=== PATIENT | male | born 1985 | race Caucasian/White ===

== ENCOUNTER 2017-06-08 20:16 | Emergency (ER) | payer OTHER ==
[~2017-06-08] VITALS: Ht 182.9 cm; Wt 81.7 kg
[~2017-06-08 20:16] MED LIST: AMOX500 PO; Augmentin 875-1 EACH PO; BENADRYL25 MG PO; Bactrim Ds Tab1 EACH PO; CRUTCH4 USE; EPIN.3I IM; HYDACE5 PO; IBUP400 PO; IBUP800 PO; INVEGA SUS156 MG/1 M IM; MUPI2TC TOP; NAPR500 PO; Norco 5-325 Ta1 EACH PO; PENVK250 PO; PENVK500 PO; PERM5TC TOP; Pepcid20 MG PO; Prednisone20 MG PO; RXPENVK250 PO; TRAM50 PO; Veetids 500500 MG PO; Zofran Odt4 MG SL
[2017-06-08] MEDS ORDERED: PSEU120ER PO (20:52)
[2017-06-08] MEDS ORDERED: BENZ100A PO (20:52)
== END 2017-06-08 20:56 | disposition home or self-care (01) ==
LOC: ER 20:16
DX: J20.8 Acute bronchitis due to other specified organisms (principal); F17.210 Nicotine dependence, cigarettes, uncomplicated; Z91.040 Latex allergy status; Z91.018 Allergy to other foods
CPT/HCPCS: 99283

== ENCOUNTER 2017-08-19 17:26 | Emergency (ER) | payer OTHER ==
[~2017-08-19] VITALS: Ht 182.9 cm; Wt 81.7 kg
[~2017-08-19 17:26] MED LIST changes: +BENZ100A PO; +PSEU120ER PO
[2017-08-19] MEDS ORDERED: PSEU120ER PO (19:02)
[2017-08-19] MEDS ORDERED: Flonase 0.05% N16 GM (19:02)
== END 2017-08-19 19:06 | disposition home or self-care (01) ==
LOC: ER 17:26
DX: J32.9 Chronic sinusitis, unspecified (principal); Z91.040 Latex allergy status; Z91.048 Other nonmedicinal substance allergy status; F17.210 Nicotine dependence, cigarettes, uncomplicated
CPT/HCPCS: 87081; 87430; 99283

== ENCOUNTER 2019-01-23 15:34 | Emergency (ER) | payer OTHER ==
[~2019-01-23] VITALS: Ht 182.9 cm; Wt 81.7 kg
[~2019-01-23 15:34] MED LIST changes: +Flonase 0.05% N16 GM
[2019-01-23] MEDS ORDERED: CYCL10 PO (16:53)
[2019-01-23] MEDS ORDERED: IBUP800 PO (16:53)
== END 2019-01-23 17:08 | disposition home or self-care (01) ==
LOC: ER 15:34
DX: S39.012A Strain of muscle, fascia and tendon of lower back, initial encounter (principal); X58.XXXA Exposure to other specified factors, initial encounter; Y99.0 Civilian activity done for income or pay; Z91.040 Latex allergy status; Z91.048 Other nonmedicinal substance allergy status; F17.200 Nicotine dependence, unspecified, uncomplicated
CPT/HCPCS: 72100; 99283-25

== ENCOUNTER 2019-04-03 20:50 | Emergency (ER) | payer OTHER ==
[~2019-04-03] VITALS: Ht 182.9 cm; Wt 81.7 kg
[~2019-04-03 20:50] MED LIST changes: +CYCL10 PO
[2019-04-03] MEDS ORDERED: IBUP600 PO (22:20)
[2019-04-03] MEDS ORDERED: ONDA4ODT MM (22:20)
== END 2019-04-03 22:29 | disposition home or self-care (01) ==
LOC: ER 20:50
DX: J11.1 Influenza due to unidentified influenza virus with other respiratory manifestations (principal); Z91.040 Latex allergy status; Z91.018 Allergy to other foods; F17.200 Nicotine dependence, unspecified, uncomplicated
CPT/HCPCS: 87430; 99283

== ENCOUNTER 2020-10-21 07:29 | Emergency (ER) | payer OTHER ==
[~2020-10-21] VITALS: Ht 182.9 cm; Wt 81.7 kg
[~2020-10-21 07:29] MED LIST changes: +IBUP600 PO; +ONDA4ODT MM
== END 2020-10-21 08:54 | disposition home or self-care (01) ==
LOC: ER 07:29
DX: J11.1 Influenza due to unidentified influenza virus with other respiratory manifestations (principal); F17.200 Nicotine dependence, unspecified, uncomplicated; Z91.040 Latex allergy status; Z91.018 Allergy to other foods
CPT/HCPCS: 87430; 96372; 99284; J0561

== ENCOUNTER 2020-12-19 05:39 | Emergency (ER) | payer OTHER ==
[~2020-12-19] VITALS: Ht 182.9 cm; Wt 81.7 kg
== END 2020-12-19 08:11 | disposition home or self-care (01) ==
LOC: ER 05:39
DX: R51.9 Headache, unspecified (principal); Z91.040 Latex allergy status; Z91.018 Allergy to other foods; F17.210 Nicotine dependence, cigarettes, uncomplicated
CPT/HCPCS: 36415; 96374; 96375; 99283-25; J1100; J1200; J1885; J2765; J7030

== ENCOUNTER 2021-01-06 17:22 | Emergency (ER) | payer OTHER ==
[~2021-01-06] VITALS: Ht 182.9 cm; Wt 81.7 kg
== END 2021-01-06 19:23 | disposition left against medical advice (07) ==
LOC: ER 17:22
DX: K02.9 Dental caries, unspecified (principal); K08.89 Other specified disorders of teeth and supporting structures; F17.210 Nicotine dependence, cigarettes, uncomplicated; Z91.040 Latex allergy status; Z91.018 Allergy to other foods
CPT/HCPCS: 91303; 99282

== ENCOUNTER 2021-03-18 05:05 | Emergency (ER) | payer OTHER ==
[~2021-03-18] VITALS: Ht 182.9 cm; Wt 81.7 kg
== END 2021-03-18 06:41 | disposition home or self-care (01) ==
LOC: ER 05:05
DX: U07.1 COVID-19 (principal); Z91.040 Latex allergy status; F17.210 Nicotine dependence, cigarettes, uncomplicated
CPT/HCPCS: 99282

== ENCOUNTER 2021-03-29 01:56 | Emergency (ER) | payer OTHER ==
[~2021-03-29] VITALS: Ht 182.9 cm; Wt 81.7 kg
== END 2021-03-29 06:15 | disposition home or self-care (01) ==
LOC: ER 01:56
DX: R05.9 Cough, unspecified (principal); Z91.040 Latex allergy status; Z91.018 Allergy to other foods; F17.210 Nicotine dependence, cigarettes, uncomplicated
CPT/HCPCS: 71045; 99284-25

== ENCOUNTER 2021-06-08 22:44 | Emergency (ER) | payer OTHER ==
[~2021-06-08] VITALS: Ht 182.9 cm; Wt 81.7 kg
[~2021-06-08 22:44] MED LIST changes: +CLIN300 PO
[2021-06-08] MEDS ORDERED: AMOX500 PO (23:25)
== END 2021-06-08 23:55 | disposition home or self-care (01) ==
LOC: ER 22:44
DX: K02.9 Dental caries, unspecified (principal); K08.89 Other specified disorders of teeth and supporting structures; F15.10 Other stimulant abuse, uncomplicated; F17.210 Nicotine dependence, cigarettes, uncomplicated
CPT/HCPCS: 99282; A9270

== ENCOUNTER 2021-09-26 22:45 | Emergency (ER) | payer SELFPAY ==
[~2021-09-26] VITALS: Ht 182.9 cm; Wt 81.7 kg
[2021-09-26] MEDS ORDERED: CEPH500 PO (23:22)
== END 2021-09-26 23:32 | disposition home or self-care (01) ==
LOC: ER 22:45
DX: L02.612 Cutaneous abscess of left foot (principal); F17.210 Nicotine dependence, cigarettes, uncomplicated
CPT/HCPCS: A9270

== ENCOUNTER 2021-10-31 13:19 | Emergency (ER) | payer SELFPAY ==
[~2021-10-31] VITALS: Ht 182.9 cm; Wt 81.7 kg
[~2021-10-31 13:19] MED LIST changes: +CEPH500 PO
== END 2021-10-31 15:24 | disposition left against medical advice (07) ==
LOC: ER 13:19
DX: L02.416 Cutaneous abscess of left lower limb (principal); Z53.21 Procedure and treatment not carried out due to patient leaving prior to being seen by health care provider
CPT/HCPCS: 99281

== ENCOUNTER 2021-12-12 01:56 | Emergency (ER) | payer OTHER ==
[~2021-12-12] VITALS: Ht 182.9 cm; Wt 81.7 kg
[2021-12-12] MEDS ORDERED: ZEBUTAL 50-3251 EAC1 PO (03:40)
[2021-12-15] MEDS ORDERED: IBUP800 PO (05:06)
== END 2021-12-12 04:16 | disposition home or self-care (01) ==
LOC: ER 01:56
DX: R51.9 Headache, unspecified (principal); R11.0 Nausea; F17.210 Nicotine dependence, cigarettes, uncomplicated; Z91.040 Latex allergy status; Z91.048 Other nonmedicinal substance allergy status
CPT/HCPCS: 96372; 99283-25; J1885

== ENCOUNTER 2022-02-01 05:07 | Emergency (ER) | payer OTHER ==
[~2022-02-01] VITALS: Ht 182.9 cm; Wt 81.7 kg
[~2022-02-01 05:07] MED LIST changes: +ZEBUTAL 50-3251 EAC1 PO
== END 2022-02-01 08:03 | disposition home or self-care (01) ==
LOC: ER 05:07
DX: R51.9 Headache, unspecified (principal); Z91.040 Latex allergy status; Z91.048 Other nonmedicinal substance allergy status; F17.210 Nicotine dependence, cigarettes, uncomplicated
CPT/HCPCS: 99283

== ENCOUNTER 2022-03-06 10:54 | Emergency (ER) | payer OTHER ==
[~2022-03-06] VITALS: Ht 175.3 cm; Wt 70.3 kg
== END 2022-03-06 11:25 | disposition home or self-care (01) ==
LOC: ER 10:54
DX: J02.8 Acute pharyngitis due to other specified organisms (principal); F17.210 Nicotine dependence, cigarettes, uncomplicated; Z91.040 Latex allergy status; Z91.018 Allergy to other foods
CPT/HCPCS: 99282

== ENCOUNTER 2022-03-15 17:59 | Emergency (ER) | payer OTHER ==
[~2022-03-15] VITALS: Ht 182.9 cm; Wt 81.7 kg
== END 2022-03-15 21:00 | disposition home or self-care (01) ==
LOC: ER 17:59
DX: L08.9 Local infection of the skin and subcutaneous tissue, unspecified (principal); F17.210 Nicotine dependence, cigarettes, uncomplicated; Z53.29 Procedure and treatment not carried out because of patient's decision for other reasons
CPT/HCPCS: 99282

== ENCOUNTER 2022-09-05 00:42 | Emergency (ER) | payer OTHER ==
[~2022-09-05] VITALS: Ht 182.9 cm; Wt 81.7 kg
[2022-09-05 00:57] VITALS: BP 142/87
== END 2022-09-05 02:24 | disposition home or self-care (01) ==
LOC: ER 00:42
DX: F15.10 Other stimulant abuse, uncomplicated (principal); R51.9 Headache, unspecified; F17.210 Nicotine dependence, cigarettes, uncomplicated; Z91.040 Latex allergy status; Z91.018 Allergy to other foods
CPT/HCPCS: 99283; A9270

== ENCOUNTER 2022-10-06 05:30 | Emergency (ER) | payer OTHER ==
[~2022-10-06] VITALS: Ht 182.9 cm; Wt 81.7 kg
[2022-10-06 05:45] VITALS: BP 136/83
[2022-10-06] MEDS ORDERED: Amoxicillin875 MG PO (06:21)
== END 2022-10-06 06:32 | disposition home or self-care (01) ==
LOC: ER 05:30
DX: K04.7 Periapical abscess without sinus (principal); K02.9 Dental caries, unspecified; Z91.040 Latex allergy status; Z91.018 Allergy to other foods; F17.210 Nicotine dependence, cigarettes, uncomplicated
CPT/HCPCS: 99282; A9270

== ENCOUNTER 2022-10-09 05:28 | Emergency (ER) | payer OTHER ==
[~2022-10-09] VITALS: Ht 182.9 cm; Wt 81.7 kg
[~2022-10-09 05:28] MED LIST changes: +Amoxicillin875 MG PO
[2022-10-09 08:03] LABS: Influenza A, PCR NEGATIVE (NEGATIVE); Influenza B, PCR NEGATIVE (NEGATIVE); Resp Syncytial Virus, PCR NEGATIVE (NEGATIVE); SARS-Cov-2 (COVID-19) PCR, MMC NEGATIVE (NEGATIVE)
[2022-10-09] MEDS ORDERED: METO10 PO (08:30)
[2022-10-09] MEDS ORDERED: ONDA4ODT MM (08:30)
[2022-10-09 08:36] VITALS: BP 155/78
== END 2022-10-09 08:38 | disposition home or self-care (01) ==
LOC: ER 05:28
PROVIDERS: Student in an Organized Health Care Education/Training Program
DX: G43.909 Migraine, unspecified, not intractable, without status migrainosus (principal); B34.9 Viral infection, unspecified; K02.9 Dental caries, unspecified; R59.0 Localized enlarged lymph nodes; F17.210 Nicotine dependence, cigarettes, uncomplicated; Z91.040 Latex allergy status; Z91.048 Other nonmedicinal substance allergy status; Z20.822 Contact with and (suspected) exposure to COVID-19
CPT/HCPCS: 0241U; 96361; 96374; 96375; 99283-25; A9270; J1885; J2765; J7030

== ENCOUNTER 2022-10-17 04:19 | Emergency (ER) | payer OTHER ==
[~2022-10-17] VITALS: Ht 182.9 cm; Wt 81.7 kg
[~2022-10-17 04:19] MED LIST changes: +METO10 PO
[2022-10-17 04:33] VITALS: BP 136/91
== END 2022-10-17 06:27 | disposition home or self-care (01) ==
LOC: ER 04:19
DX: G43.909 Migraine, unspecified, not intractable, without status migrainosus (principal); F17.210 Nicotine dependence, cigarettes, uncomplicated
CPT/HCPCS: 96361; 96374; 96375; 99282-25; A9270; J0780; J1200; J7030

== ENCOUNTER 2022-11-09 03:40 | Emergency (ER) | payer OTHER ==
[~2022-11-09] VITALS: Ht 182.9 cm; Wt 81.7 kg
[2022-11-09 04:04] VITALS: BP 129/83
== END 2022-11-09 04:31 | disposition home or self-care (01) ==
LOC: ER 03:40
DX: R51.9 Headache, unspecified (principal); F15.90 Other stimulant use, unspecified, uncomplicated; F17.210 Nicotine dependence, cigarettes, uncomplicated; Z91.040 Latex allergy status; Z91.018 Allergy to other foods
CPT/HCPCS: 99283

== ENCOUNTER 2022-12-03 03:34 | Emergency (ER) | payer OTHER ==
[~2022-12-03] VITALS: Ht 180.3 cm; Wt 59.0 kg
[2022-12-03 03:50] VITALS: BP 132/95
[2022-12-03] MEDS ORDERED: Ibuprofen600 MG PO (04:18)
[2022-12-03] MEDS ORDERED: PENVK500 PO (04:18)
== END 2022-12-03 04:24 | disposition home or self-care (01) ==
LOC: ER 03:34
DX: K02.9 Dental caries, unspecified (principal); Z91.040 Latex allergy status; Z91.018 Allergy to other foods; G43.909 Migraine, unspecified, not intractable, without status migrainosus; F17.210 Nicotine dependence, cigarettes, uncomplicated
CPT/HCPCS: 99282; A9270

== ENCOUNTER 2023-01-08 06:23 | Emergency (ER) | payer OTHER ==
[~2023-01-08] VITALS: Ht 182.9 cm; Wt 81.7 kg
[~2023-01-08 06:23] MED LIST changes: +Ibuprofen600 MG PO
[2023-01-08 06:40] VITALS: BP 133/82
[2023-01-08] MEDS ORDERED: IBUP600 PO (07:26)
[2023-01-08] MEDS ORDERED: PSEU120ER PO (07:26)
== END 2023-01-08 07:57 | disposition home or self-care (01) ==
LOC: ER 06:23
DX: J06.9 Acute upper respiratory infection, unspecified (principal); Z91.040 Latex allergy status; Z91.018 Allergy to other foods; Z79.899 Other long term (current) drug therapy; G43.909 Migraine, unspecified, not intractable, without status migrainosus; F17.210 Nicotine dependence, cigarettes, uncomplicated
CPT/HCPCS: 99283; A9270

== ENCOUNTER 2023-03-22 05:05 | Emergency (ER) | payer OTHER ==
[~2023-03-22] VITALS: Ht 182.9 cm; Wt 81.7 kg
[2023-03-22 05:24] VITALS: BP 145/98
== END 2023-03-22 05:54 | disposition home or self-care (01) ==
LOC: ER 05:05
DX: K02.9 Dental caries, unspecified (principal); F17.210 Nicotine dependence, cigarettes, uncomplicated; Z91.040 Latex allergy status; Z91.018 Allergy to other foods
CPT/HCPCS: 99282

== ENCOUNTER 2023-04-22 02:10 | Emergency (ER) | payer OTHER ==
[~2023-04-22] VITALS: Ht 182.9 cm; Wt 81.7 kg
[2023-04-22 02:19] VITALS: BP 141/85
[2023-04-22 03:11] LABS: Influenza A, PCR NEGATIVE (NEGATIVE); Influenza B, PCR NEGATIVE (NEGATIVE); Resp Syncytial Virus, PCR NEGATIVE (NEGATIVE); SARS-Cov-2 (COVID-19) PCR, MMC NEGATIVE (NEGATIVE)
[2023-04-22] MEDS ORDERED: Ibuprofen 600 MG Tab PO ONE (03:50)
[2023-04-22] MEDS ORDERED: Acetaminophen 500 MG Tab PO ONE (03:55)
== END 2023-04-22 04:20 | disposition left against medical advice (07) ==
LOC: ER 02:10
PROVIDERS: Emergency Medicine
DX: J02.9 Acute pharyngitis, unspecified (principal); Z91.040 Latex allergy status; Z91.018 Allergy to other foods; G43.909 Migraine, unspecified, not intractable, without status migrainosus; F17.210 Nicotine dependence, cigarettes, uncomplicated
CPT/HCPCS: 0241U; 99284; A9270

== ENCOUNTER 2023-07-04 21:29 | Emergency (ER) | payer OTHER ==
[~2023-07-04] VITALS: Ht 177.8 cm; Wt 72.6 kg
[~2023-07-04 21:29] MED LIST changes: +ACET500 PO
[2023-07-04 21:32] VITALS: BP 155/92
[2023-07-04] MEDS ORDERED: Ibuprofen 400 MG Tab PO ONE (21:40)
[2023-07-04] MEDS ORDERED: Amoxicillin/Clavulanate K 875 MG Tab PO ONE (21:40)
[2023-07-04] MEDS ORDERED: IBUP800 PO (21:41)
[2023-07-04] MEDS ORDERED: AMOCLA875 PO (21:41)
== END 2023-07-04 21:47 | disposition home or self-care (01) ==
LOC: ER 21:29
DX: K04.7 Periapical abscess without sinus (principal); J32.9 Chronic sinusitis, unspecified; F17.210 Nicotine dependence, cigarettes, uncomplicated; Z91.040 Latex allergy status; Z91.018 Allergy to other foods
CPT/HCPCS: 99282; A9270

== ENCOUNTER 2023-10-16 19:46 | Emergency (ER) | payer OTHER ==
[~2023-10-16] VITALS: Ht 182.9 cm; Wt 81.7 kg
[~2023-10-16 19:46] MED LIST changes: +AMOCLA875 PO; +Nicoderm Cq1 EAC1 TOP; +VISBIOME 112.51 EACH PO
[2023-10-16 20:32] VITALS: BP 138/96
[2023-10-16] MEDS ORDERED: Amoxicillin875 MG PO (21:09)
[2023-10-16] MEDS ORDERED: Amoxicillin 875 MG Tab PO ONE (21:10)
== END 2023-10-16 21:22 | disposition home or self-care (01) ==
LOC: ER 19:46
DX: K04.7 Periapical abscess without sinus (principal); F17.210 Nicotine dependence, cigarettes, uncomplicated; Z91.040 Latex allergy status; Z91.018 Allergy to other foods; Z79.899 Other long term (current) drug therapy
CPT/HCPCS: 99282; A9270

== ENCOUNTER 2023-11-07 04:50 | Emergency (ER) | payer OTHER ==
[~2023-11-07] VITALS: Ht 182.9 cm; Wt 90.7 kg
[2023-11-07] MEDS ORDERED: DiphenhydrAMINE HCL 25 MG Cap PO ONE (05:05)
[2023-11-07] MEDS ORDERED: Acetaminophen 500 MG Tab PO ONE (05:05)
[2023-11-07] MEDS ORDERED: Naproxen 250 MG TAB PO ONE (05:05)
[2023-11-07] MEDS ORDERED: Metoclopramide HCl 10 MG Tab PO ONE (05:05)
[2023-11-07 05:45] VITALS: BP 118/78
[2023-11-07] MEDS ORDERED: METO10 PO (05:48)
== END 2023-11-07 05:54 | disposition home or self-care (01) ==
LOC: ER 04:50
DX: R51.9 Headache, unspecified (principal); F17.200 Nicotine dependence, unspecified, uncomplicated; Z91.040 Latex allergy status; Z91.018 Allergy to other foods; Z79.899 Other long term (current) drug therapy
CPT/HCPCS: A9270

== ENCOUNTER 2023-11-17 00:28 | Emergency (ER) | payer OTHER ==
[~2023-11-17] VITALS: Ht 182.9 cm; Wt 81.7 kg
[2023-11-17 00:35] VITALS: BP 152/84
[2023-11-17] MEDS ORDERED: Penicillin V Potassium 250 MG Tab PO ONE (02:30)
== END 2023-11-17 02:45 | disposition home or self-care (01) ==
LOC: ER 00:28
DX: K04.7 Periapical abscess without sinus (principal); F17.200 Nicotine dependence, unspecified, uncomplicated; Z79.899 Other long term (current) drug therapy; Z91.040 Latex allergy status; Z91.018 Allergy to other foods
CPT/HCPCS: 99282; A9270

== ENCOUNTER 2023-11-26 07:21 | Emergency (ER) | payer OTHER ==
[~2023-11-26] VITALS: Ht 182.9 cm; Wt 81.7 kg
[2023-11-26] MEDS ORDERED: Ketorolac Tromethamine 15mg Vial IV ONE (07:45)
[2023-11-26] MEDS ORDERED: Ampicillin Sod/Sulbactam Sod 1.5 GM in NS 100 ML IV ONE (07:45)
[2023-11-26] MEDS ORDERED: Dexamethasone Sodium Phosphate 4 MG/ML 1ML Vial IV ONE (07:45)
[2023-11-26 08:27] LABS: BASOPHILS PERCENT AUTO 1 % (0-2); EOSINOPHILS ABSOLUTE AUTO 0.44 K/mm3 (0.00-0.68); EOSINOPHILS PERCENT AUTO 6 % (0-6); Hematocrit 36.5 % (37.0-53.0); Hemoglobin 11.7 g/dL (13.5-17.5); IMMATURE GRAN ABSOLUTE AUTO 0.01 K/mm3 (0.00-0.10); IMMATURE GRAN PERCENT AUTO 0 % (0-1); LYMPHOCYTES PERCENT AUTO 29 % (21-46); MONOCYTES PERCENT AUTO 10 % (4-13); Mean Corpuscular HGB 27.9 pg (26.0-34.0); Mean Corpuscular HGB Conc 32.1 g/dL (31.5-36.5); Mean Corpuscular Volume 87 fL (80-100); Mean Platelet Volume 9.2 fL (9.1-12.4); NEUTROPHILS ABSOLUTE AUTO 3.94 K/mm3 (1.96-9.15); NEUTROPHILS PERCENT AUTO 54 % (41-73); Platelet Count 373 K/mm3 (150-400); RDW Coefficient Variation 12.8 % (11.7-14.2); RDW Standard Deviation 40.8 fL (35.1-46.3); White Blood Cell Count 7.29 K/mm3 (4.00-11.30)
[2023-11-26 08:53] LABS: Bun/Creatinine Ratio 21.5 (12.0-20.0); Calcium, Blood 8.8 mg/dL (8.5-10.1); Creatinine, Blood 0.84 mg/dL (0.60-1.20); Potassium, Blood 3.7 mmol/L (3.5-5.5)
[2023-11-26 09:15] VITALS: BP 129/91
[2023-11-26] MEDS ORDERED: ACET500 PO (09:16)
[2023-11-26] MEDS ORDERED: IBUP600 PO (09:16)
[2023-11-26] MEDS ORDERED: AMOCLA875 PO (09:16)
== END 2023-11-26 09:30 | disposition home or self-care (01) ==
LOC: ER 07:21
PROVIDERS: Emergency Medicine
DX: K04.7 Periapical abscess without sinus (principal); F17.200 Nicotine dependence, unspecified, uncomplicated; Z79.899 Other long term (current) drug therapy; Z91.040 Latex allergy status; Z91.018 Allergy to other foods
CPT/HCPCS: 80048; 85025; 96365; 96375; 99283-25; J0295; J1100; J1885

== ENCOUNTER 2023-11-29 06:16 | Emergency (ER) | payer OTHER ==
[~2023-11-29] VITALS: Ht 182.9 cm; Wt 81.7 kg
[2023-11-29 06:34] VITALS: BP 131/82
[2023-11-29] MEDS ORDERED: AMOCLA875 PO (06:39)
== END 2023-11-29 06:42 | disposition home or self-care (01) ==
LOC: ER 06:16
DX: K04.7 Periapical abscess without sinus (principal); F17.210 Nicotine dependence, cigarettes, uncomplicated; Z79.899 Other long term (current) drug therapy; Z91.040 Latex allergy status; Z91.018 Allergy to other foods
CPT/HCPCS: 99281

== ENCOUNTER 2023-12-04 23:00 | Emergency (ER) | payer OTHER ==
[~2023-12-04] VITALS: Ht 182.9 cm; Wt 81.7 kg
[2023-12-04] MEDS ORDERED: DiphenhydrAMINE HCl 50 MG Cap PO ONE (23:05)
[2023-12-04] MEDS ORDERED: Famotidine 20 MG Tab PO ONE (23:05)
[2023-12-05] MEDS ORDERED: Acetaminophen 500 MG Tab PO ONE (00:25)
[2023-12-05] MEDS ORDERED: EPIPEN0.3 MG/0.3 IM (00:28)
[2023-12-05] MEDS ORDERED: BENADRYL25 M1 PO (00:28)
[2023-12-05] MEDS ORDERED: ACET500 PO (00:28)
[2023-12-05 00:50] VITALS: BP 121/73
[2023-12-05] MEDS ORDERED: Ondansetron 4 MG SoluTab SL ONE (00:50)
== END 2023-12-05 00:51 | disposition home or self-care (01) ==
LOC: ER 23:00
DX: R51.9 Headache, unspecified (principal); R11.0 Nausea; F17.210 Nicotine dependence, cigarettes, uncomplicated; Z91.040 Latex allergy status; Z91.018 Allergy to other foods; Z79.2 Long term (current) use of antibiotics; Z79.899 Other long term (current) drug therapy
CPT/HCPCS: 99283; A9270

== ENCOUNTER 2023-12-12 03:18 | Emergency (ER) | payer OTHER ==
[~2023-12-12] VITALS: Ht 182.9 cm; Wt 81.7 kg
[~2023-12-12 03:18] MED LIST changes: +BENADRYL25 M1 PO; +EPIPEN0.3 MG/0.3 IM
[2023-12-12] MEDS ORDERED: Ketorolac Tromethamine 15mg Vial IV ONE (03:45)
[2023-12-12] MEDS ORDERED: Lactated Ringer's 1,000 ML IV ONE (03:45)
[2023-12-12] MEDS ORDERED: Ondansetron HCl 2 MG / ML 2ML Vial IV ONE (03:45)
[2023-12-12 04:29] LABS: BASOPHILS ABSOLUTE AUTO 0.09 K/mm3 (0.00-0.23); BASOPHILS PERCENT AUTO 1 % (0-2); EOSINOPHILS ABSOLUTE AUTO 0.29 K/mm3 (0.00-0.68); EOSINOPHILS PERCENT AUTO 3 % (0-6); Hematocrit 36.7 % (37.0-53.0); Hemoglobin 11.8 g/dL (13.5-17.5); IMMATURE GRAN ABSOLUTE AUTO 0.01 K/mm3 (0.00-0.10); IMMATURE GRAN PERCENT AUTO 0 % (0-1); LYMPHOCYTES ABSOLUTE AUTO 2.24 K/mm3 (0.84-5.20); LYMPHOCYTES PERCENT AUTO 24 % (21-46); MONOCYTES PERCENT AUTO 8 % (4-13); Mean Corpuscular HGB 27.5 pg (26.0-34.0); Mean Corpuscular HGB Conc 32.2 g/dL (31.5-36.5); Mean Corpuscular Volume 86 fL (80-100); Mean Platelet Volume 9.1 fL (9.1-12.4); NEUTROPHILS ABSOLUTE AUTO 5.93 K/mm3 (1.96-9.15); NEUTROPHILS PERCENT AUTO 64 % (41-73); Platelet Count 428 K/mm3 (150-400); RDW Coefficient Variation 13.2 % (11.7-14.2); Red Blood Cell Count 4.29 M/mm3 (4.30-5.90); White Blood Cell Count 9.26 K/mm3 (4.00-11.30)
[2023-12-12 05:02] LABS: Albumin, Blood 3.6 g/dL (3.4-5.0); Albumin/Globulin Ratio 1.1 (0.8-1.8); Bilirubin, Total 0.2 mg/dL (0.1-1.0); Bun/Creatinine Ratio 25.3 (12.0-20.0); Calcium, Blood 9.1 mg/dL (8.5-10.1); Creatinine, Blood 0.87 mg/dL (0.60-1.20); Globulin, Blood 3.4 g/dL (2.2-4.0); Potassium, Blood 3.8 mmol/L (3.5-5.5)
[2023-12-12 05:36] LABS: Source, Urine Clean Catch
[2023-12-12 05:39] LABS: Appearance, Urine Clear (Clear); Bilirubin, Urine Neg (Neg); Blood, Urine Neg (Neg); Color, Urine Yellow (P-Yellow); Glucose Qualitative, Urine Neg (Neg); Ketones, Urine Neg (Neg); Leukocyte Esterase, Urine Neg (Neg); Nitrite, Urine Neg (Neg); Protein, Urine Neg (Neg); Urobilinogen, Urine NORM (Normal); pH, Urine 6.5 (5.0-8.0)
[2023-12-12] MEDS ORDERED: MIRALAX17 GM PO (05:50)
[2023-12-12 06:25] VITALS: BP 139/85
== END 2023-12-12 06:25 | disposition home or self-care (01) ==
LOC: ER 03:18
PROVIDERS: Student in an Organized Health Care Education/Training Program
DX: K59.00 Constipation, unspecified (principal); R10.84 Generalized abdominal pain; R11.0 Nausea; F17.210 Nicotine dependence, cigarettes, uncomplicated; Z79.899 Other long term (current) drug therapy; Z91.040 Latex allergy status; Z91.018 Allergy to other foods
CPT/HCPCS: 74019; 80053; 81003; 83690; 85025; 96361; 96374; 96375; 99284-25; J1885; J2405; J7120

== ENCOUNTER 2024-01-04 06:12 | Emergency (ER) | payer OTHER ==
[~2024-01-04] VITALS: Ht 182.9 cm; Wt 81.7 kg
[~2024-01-04 06:12] MED LIST changes: +MIRALAX17 GM PO
[2024-01-04 06:23] VITALS: BP 153/90
[2024-01-04] MEDS ORDERED: Ibuprofen 400 MG Tab PO ONE (06:30)
[2024-01-04] MEDS ORDERED: Promethazine HCl 25 MG Tab PO ONE (06:30)
== END 2024-01-04 07:28 ==
LOC: ER 06:12
DX: R51.9 Headache, unspecified (principal); F17.210 Nicotine dependence, cigarettes, uncomplicated; Z79.899 Other long term (current) drug therapy; Z91.040 Latex allergy status; Z91.018 Allergy to other foods
CPT/HCPCS: 99283; A9270

== ENCOUNTER 2024-02-20 17:39 | Emergency (ER) | payer OTHER ==
[~2024-02-20] VITALS: Ht 182.9 cm; Wt 81.7 kg
[2024-02-20 17:44] VITALS: BP 136/102
[2024-02-20] MEDS ORDERED: Ketorolac Tromethamine 30mg Vial IM ONE (18:00)
[2024-02-20] MEDS ORDERED: Ondansetron 4 MG SoluTab SL ONE (18:00)
[2024-02-20] MEDS ORDERED: RX Prepack 2 Tabs Ondansetron ODT 4MG UD ONE (18:25)
== END 2024-02-20 18:40 | disposition home or self-care (01) ==
LOC: ER 17:39
DX: J06.9 Acute upper respiratory infection, unspecified (principal); F17.210 Nicotine dependence, cigarettes, uncomplicated; Z91.040 Latex allergy status; Z91.018 Allergy to other foods
CPT/HCPCS: 87081; 96374; 99283-25; A9270; J1885

== ENCOUNTER 2024-03-29 07:32 | Emergency (ER) | payer OTHER ==
[~2024-03-29] VITALS: Ht 182.9 cm; Wt 81.7 kg
[2024-03-29 07:49] VITALS: BP 141/95
== END 2024-03-29 08:31 | disposition home or self-care (01) ==
LOC: ER 07:32
DX: J06.9 Acute upper respiratory infection, unspecified (principal); F17.210 Nicotine dependence, cigarettes, uncomplicated; G43.909 Migraine, unspecified, not intractable, without status migrainosus
CPT/HCPCS: 99283

== ENCOUNTER 2024-04-09 04:47 | Emergency (ER) | payer OTHER ==
[~2024-04-09] VITALS: Ht 182.9 cm; Wt 81.7 kg
[2024-04-09 05:47] VITALS: BP 140/92
[2024-04-09] MEDS ORDERED: DiphenhydrAMINE HCL 25 MG Cap PO ONE (06:15)
[2024-04-09] MEDS ORDERED: Acetaminophen 500 MG Tab PO ONE (06:15)
[2024-04-09] MEDS ORDERED: Ketorolac Tromethamine 15mg Vial IM ONE (06:15)
[2024-04-09] MEDS ORDERED: Prochlorperazine Edisylate 10 mg Vial IM ONE (06:15)
== END 2024-04-09 06:48 | disposition home or self-care (01) ==
LOC: ER 04:47
DX: G43.909 Migraine, unspecified, not intractable, without status migrainosus (principal); F17.210 Nicotine dependence, cigarettes, uncomplicated; Z91.040 Latex allergy status; Z91.018 Allergy to other foods
CPT/HCPCS: 96372; 99283-25; A9270; J0780; J1885

== ENCOUNTER 2024-05-26 23:48 | Emergency (ER) | payer OTHER ==
[~2024-05-26] VITALS: Ht 182.9 cm; Wt 81.7 kg
[2024-05-26 23:55] VITALS: BP 154/106
[2024-05-27] MEDS ORDERED: Amoxicillin/Clavulanate K 875 MG Tab PO ONE (01:20)
[2024-05-27] MEDS ORDERED: Acetaminophen 500 MG Tab PO ONE (01:20)
[2024-05-27] MEDS ORDERED: Ibuprofen 600 MG Tab PO ONE (01:20)
[2024-05-27] MEDS ORDERED: AMOCLA875 PO (01:22)
== END 2024-05-27 01:30 | disposition home or self-care (01) ==
LOC: ER 23:48
DX: K04.7 Periapical abscess without sinus (principal); K02.9 Dental caries, unspecified; G43.909 Migraine, unspecified, not intractable, without status migrainosus; F17.210 Nicotine dependence, cigarettes, uncomplicated; Z91.040 Latex allergy status; Z91.018 Allergy to other foods
CPT/HCPCS: 99282; A9270

== ENCOUNTER 2024-06-27 05:23 | Emergency (ER) | payer OTHER ==
[~2024-06-27] VITALS: Ht 182.9 cm; Wt 81.7 kg
[2024-06-27 05:26] VITALS: BP 136/96
[2024-06-27] MEDS ORDERED: Ondansetron 4 MG SoluTab SL ONE (05:30)
== END 2024-06-27 05:31 | disposition home or self-care (01) ==
LOC: ER 05:23
DX: F15.90 Other stimulant use, unspecified, uncomplicated (principal); R11.0 Nausea; F17.210 Nicotine dependence, cigarettes, uncomplicated; Z91.040 Latex allergy status; Z91.018 Allergy to other foods
CPT/HCPCS: 99284; A9270

== ENCOUNTER 2024-07-04 02:47 | Emergency (ER) | payer OTHER ==
[~2024-07-04] VITALS: Ht 182.9 cm; Wt 83.9 kg
[2024-07-04 03:02] VITALS: BP 138/86
[2024-07-04] MEDS ORDERED: PENVK500 PO (04:27)
[2024-07-04] MEDS ORDERED: Penicillin V Potassium 250 MG Tab PO ONE (04:30)
== END 2024-07-04 04:38 | disposition home or self-care (01) ==
LOC: ER 02:47
DX: K04.7 Periapical abscess without sinus (principal); K08.89 Other specified disorders of teeth and supporting structures; F15.90 Other stimulant use, unspecified, uncomplicated; F17.210 Nicotine dependence, cigarettes, uncomplicated; Z91.040 Latex allergy status; Z91.018 Allergy to other foods
CPT/HCPCS: 99282; A9270

== ENCOUNTER 2024-07-04 23:39 | Emergency (ER) | payer OTHER ==
[~2024-07-04] VITALS: Ht 182.9 cm; Wt 81.7 kg
[2024-07-04 23:42] VITALS: BP 157/107
[2024-07-04] MEDS ORDERED: Ondansetron 4 MG SoluTab SL ONE (23:50)
[2024-07-04] MEDS ORDERED: RX Prepack 2 Tabs Ondansetron ODT 4MG UD ONE (23:55)
== END 2024-07-04 23:57 | disposition home or self-care (01) ==
LOC: ER 23:39
DX: R11.0 Nausea (principal); F17.210 Nicotine dependence, cigarettes, uncomplicated; Z91.040 Latex allergy status; Z91.018 Allergy to other foods
CPT/HCPCS: 99283; A9270

== ENCOUNTER 2024-07-09 21:01 | Emergency (ER) | payer OTHER ==
[~2024-07-09] VITALS: Ht 182.9 cm; Wt 81.7 kg
[2024-07-09 21:27] VITALS: BP 143/95
[2024-07-09 22:06] LABS: BASOPHILS PERCENT AUTO 1 % (0-2); EOSINOPHILS ABSOLUTE AUTO 0.47 K/mm3 (0.00-0.68); EOSINOPHILS PERCENT AUTO 6 % (0-6); Hematocrit 34.5 % (37.0-53.0); Hemoglobin 11.3 g/dL (13.5-17.5); IMMATURE GRAN ABSOLUTE AUTO 0.01 K/mm3 (0.00-0.10); IMMATURE GRAN PERCENT AUTO 0 % (0-1); LYMPHOCYTES ABSOLUTE AUTO 2.26 K/mm3 (0.84-5.20); LYMPHOCYTES PERCENT AUTO 30 % (21-46); MONOCYTES ABSOLUTE AUTO 0.54 K/mm3 (0.16-1.47); MONOCYTES PERCENT AUTO 7 % (4-13); Mean Corpuscular HGB 28.1 pg (26.0-34.0); Mean Corpuscular HGB Conc 32.8 g/dL (31.5-36.5); Mean Corpuscular Volume 86 fL (80-100); Mean Platelet Volume 9.5 fL (9.1-12.4); NEUTROPHILS ABSOLUTE AUTO 4.15 K/mm3 (1.96-9.15); NEUTROPHILS PERCENT AUTO 55 % (41-73); Platelet Count 378 K/mm3 (150-400); RDW Coefficient Variation 13.9 % (11.7-14.2); RDW Standard Deviation 43.4 fL (35.1-46.3); Red Blood Cell Count 4.02 M/mm3 (4.30-5.90); White Blood Cell Count 7.53 K/mm3 (4.00-11.30)
[2024-07-09 22:27] LABS: Albumin, Blood 3.5 g/dL (3.4-5.0); Albumin/Globulin Ratio 1.1 (0.8-1.8); Bilirubin, Total 0.2 mg/dL (0.1-1.0); Bun/Creatinine Ratio 21.9 (12.0-20.0); Calcium, Blood 8.5 mg/dL (8.5-10.1); Creatinine, Blood 0.96 mg/dL (0.60-1.20); Globulin, Blood 3.1 g/dL (2.2-4.0); Total Protein, Blood 6.6 g/dL (6.4-8.2)
[2024-07-09] MEDS ORDERED: Meclizine HCl 25 MG Tab PO ONE (22:55)
[2024-07-09] MEDS ORDERED: MECL25 PO (22:57)
== END 2024-07-09 23:03 | disposition home or self-care (01) ==
LOC: ER 21:01
PROVIDERS: Student in an Organized Health Care Education/Training Program
DX: R42 Dizziness and giddiness (principal); G43.909 Migraine, unspecified, not intractable, without status migrainosus; F17.210 Nicotine dependence, cigarettes, uncomplicated; Z91.040 Latex allergy status; Z91.018 Allergy to other foods; Z59.89 Other problems related to housing and economic circumstances
CPT/HCPCS: 80053; 85025; 99283; A9270

== ENCOUNTER 2024-08-04 19:00 | Emergency (ER) | payer OTHER ==
[~2024-08-04] VITALS: Ht 182.9 cm; Wt 81.7 kg
[~2024-08-04 19:00] MED LIST changes: +MECL25 PO
[2024-08-04 19:08] VITALS: BP 135/99
== END 2024-08-04 19:46 | disposition home or self-care (01) ==
LOC: ER 19:00
DX: R21 Rash and other nonspecific skin eruption (principal); S80.812A Abrasion, left lower leg, initial encounter; F17.200 Nicotine dependence, unspecified, uncomplicated; Z79.899 Other long term (current) drug therapy; Z91.040 Latex allergy status; Z91.018 Allergy to other foods; X58.XXXA Exposure to other specified factors, initial encounter
CPT/HCPCS: 99282

== ENCOUNTER 2024-09-04 18:32 | Emergency (ER) | payer OTHER ==
[~2024-09-04] VITALS: Ht 182.9 cm; Wt 81.7 kg
[2024-09-04 18:41] VITALS: BP 128/107
[2024-09-04] MEDS ORDERED: NS 1,000 ML IV SCH (18:50)
[2024-09-04 19:22] LABS: BASOPHILS ABSOLUTE AUTO 0.10 K/mm3 (0.00-0.23); BASOPHILS PERCENT AUTO 1 % (0-2); EOSINOPHILS ABSOLUTE AUTO 0.23 K/mm3 (0.00-0.68); EOSINOPHILS PERCENT AUTO 2 % (0-6); Hematocrit 38.3 % (37.0-53.0); Hemoglobin 12.6 g/dL (13.5-17.5); IMMATURE GRAN ABSOLUTE AUTO 0.02 K/mm3 (0.00-0.10); IMMATURE GRAN PERCENT AUTO 0 % (0-1); LYMPHOCYTES ABSOLUTE AUTO 1.87 K/mm3 (0.84-5.20); LYMPHOCYTES PERCENT AUTO 18 % (21-46); MONOCYTES ABSOLUTE AUTO 0.65 K/mm3 (0.16-1.47); MONOCYTES PERCENT AUTO 6 % (4-13); Mean Corpuscular HGB Conc 32.9 g/dL (31.5-36.5); Mean Corpuscular Volume 84 fL (80-100); NEUTROPHILS ABSOLUTE AUTO 7.60 K/mm3 (1.96-9.15); NEUTROPHILS PERCENT AUTO 73 % (41-73); NRBC ABSOLUTE 0.00 K/mm3 (0.00-0.02); NRBC Auto 0.0 /100 WBC (0.0-0.2); Platelet Count 483 K/mm3 (150-400); RDW Coefficient Variation 14.1 % (11.7-14.2); RDW Standard Deviation 43.4 fL (35.1-46.3)
[2024-09-04 19:43] LABS: Anion Gap 6.0 mmol/L (3-11); Blood Urea Nitrogen 16.0 mg/dL (8-24); CO2, Blood 31.0 mmol/L (21-32); Calcium, Blood 9.4 mg/dL (8.5-10.1); Chloride, Blood 103.0 mmol/L (98-108); Creatinine, Blood 1.09 mg/dL (0.60-1.20); Glucose, Blood 89.0 mg/dL (70-99); Potassium, Blood 4.5 mmol/L (3.5-5.5); Sodium, Blood 135.0 mmol/L (136-145)
[2024-09-04] MEDS ORDERED: DOXY100 PO (19:50)
== END 2024-09-04 19:59 | disposition home or self-care (01) ==
LOC: ER 18:32
PROVIDERS: Emergency Medicine
DX: L03.116 Cellulitis of left lower limb (principal); F17.210 Nicotine dependence, cigarettes, uncomplicated
CPT/HCPCS: 80048; 85025; 99283; A9270; J7030

== ENCOUNTER 2024-09-08 05:07 | Emergency (ER) | payer OTHER ==
[~2024-09-08] VITALS: Ht 182.9 cm; Wt 81.7 kg
[~2024-09-08 05:07] MED LIST changes: +DOXY100 PO
[2024-09-08 05:51] LABS: BASOPHILS ABSOLUTE AUTO 0.11 K/mm3 (0.00-0.23); BASOPHILS PERCENT AUTO 1 % (0-2); EOSINOPHILS ABSOLUTE AUTO 0.42 K/mm3 (0.00-0.68); EOSINOPHILS PERCENT AUTO 5 % (0-6); Hematocrit 32.5 % (37.0-53.0); Hemoglobin 10.5 g/dL (13.5-17.5); IMMATURE GRAN ABSOLUTE AUTO 0.01 K/mm3 (0.00-0.10); IMMATURE GRAN PERCENT AUTO 0 % (0-1); LYMPHOCYTES ABSOLUTE AUTO 2.12 K/mm3 (0.84-5.20); LYMPHOCYTES PERCENT AUTO 27 % (21-46); MONOCYTES ABSOLUTE AUTO 0.65 K/mm3 (0.16-1.47); MONOCYTES PERCENT AUTO 8 % (4-13); Mean Corpuscular HGB Conc 32.3 g/dL (31.5-36.5); Mean Corpuscular Volume 85 fL (80-100); NEUTROPHILS ABSOLUTE AUTO 4.67 K/mm3 (1.96-9.15); NEUTROPHILS PERCENT AUTO 59 % (41-73); NRBC ABSOLUTE 0.00 K/mm3 (0.00-0.02); NRBC Auto 0.0 /100 WBC (0.0-0.2); Platelet Count 394 K/mm3 (150-400); RDW Coefficient Variation 13.7 % (11.7-14.2); RDW Standard Deviation 42.6 fL (35.1-46.3)
[2024-09-08 05:53] VITALS: BP 201/127
[2024-09-08 06:12] LABS: Alanine Aminotransfer (ALT/SGP 31.0 U/L (12-78); Albumin, Blood 3.3 g/dL (3.4-5.0); Albumin/Globulin Ratio 1.0 (0.8-1.8); Anion Gap 9.0 mmol/L (3-11); Aspartate Aminotrans (AST/SGOT 28.0 U/L (12-37); Bilirubin, Total 0.2 mg/dL (0.1-1.0); Blood Urea Nitrogen 19.0 mg/dL (8-24); CO2, Blood 24.0 mmol/L (21-32); Calcium, Blood 8.3 mg/dL (8.5-10.1); Chloride, Blood 108.0 mmol/L (98-108); Creatinine, Blood 1.01 mg/dL (0.60-1.20); Globulin, Blood 3.3 g/dL (2.2-4.0); Glucose, Blood 136.0 mg/dL (70-99); Potassium, Blood 3.2 mmol/L (3.5-5.5); Sodium, Blood 138.0 mmol/L (136-145); Total Protein, Blood 6.6 g/dL (6.4-8.2)
[2024-09-08] MEDS ORDERED: CEPH500 PO (06:44)
[2024-09-08] MEDS ORDERED: Naproxen 250 MG TAB PO ONE (06:45)
== END 2024-09-08 07:05 | disposition home or self-care (01) ==
LOC: ER 05:07
PROVIDERS: Emergency Medicine
DX: S81.802A Unspecified open wound, left lower leg, initial encounter (principal); L03.116 Cellulitis of left lower limb; G43.909 Migraine, unspecified, not intractable, without status migrainosus; F17.200 Nicotine dependence, unspecified, uncomplicated; X58.XXXA Exposure to other specified factors, initial encounter; Z91.040 Latex allergy status; Z91.018 Allergy to other foods
CPT/HCPCS: 80053; 85025; 99283; A9270

== ENCOUNTER 2024-10-16 21:43 | Emergency (ER) | payer OTHER ==
[~2024-10-16] VITALS: Ht 182.9 cm; Wt 81.7 kg
[2024-10-16 21:46] VITALS: BP 139/102
== END 2024-10-16 23:07 | disposition home or self-care (01) ==
LOC: ER 21:43
DX: S80.812A Abrasion, left lower leg, initial encounter (principal); Z91.040 Latex allergy status; F17.200 Nicotine dependence, unspecified, uncomplicated; F15.90 Other stimulant use, unspecified, uncomplicated; X58.XXXA Exposure to other specified factors, initial encounter
CPT/HCPCS: 99282

== ENCOUNTER 2024-10-25 02:46 | Observation (INO) | payer OTHER ==
[~2024-10-25] VITALS: Ht 182.9 cm; Wt 78.3 kg
[2024-10-25] MEDS ORDERED: NS 1,000 ML IV SCH ×2 (03:40→05:50)
[2024-10-25] MEDS ORDERED: Ondansetron HCl 2 MG / ML 2ML Vial IV ONE (03:40)
[2024-10-25 04:25] LABS: BASOPHILS ABSOLUTE AUTO 0.08 K/mm3 (0.00-0.23); BASOPHILS PERCENT AUTO 1 % (0-2); EOSINOPHILS ABSOLUTE AUTO 0.04 K/mm3 (0.00-0.68); EOSINOPHILS PERCENT AUTO 0 % (0-6); Hematocrit 41.0 % (37.0-53.0); Hemoglobin 13.6 g/dL (13.5-17.5); IMMATURE GRAN ABSOLUTE AUTO 0.05 K/mm3 (0.00-0.10); IMMATURE GRAN PERCENT AUTO 0 % (0-1); LYMPHOCYTES ABSOLUTE AUTO 1.69 K/mm3 (0.84-5.20); LYMPHOCYTES PERCENT AUTO 12 % (21-46); MONOCYTES ABSOLUTE AUTO 1.23 K/mm3 (0.16-1.47); MONOCYTES PERCENT AUTO 9 % (4-13); Mean Corpuscular HGB Conc 33.2 g/dL (31.5-36.5); Mean Corpuscular Volume 83 fL (80-100); NEUTROPHILS ABSOLUTE AUTO 11.22 K/mm3 (1.96-9.15); NEUTROPHILS PERCENT AUTO 78 % (41-73); NRBC ABSOLUTE 0.00 K/mm3 (0.00-0.02); NRBC Auto 0.0 /100 WBC (0.0-0.2); Platelet Count 509 K/mm3 (150-400); RDW Coefficient Variation 14.0 % (11.7-14.2); RDW Standard Deviation 42.9 fL (35.1-46.3)
[2024-10-25 05:41] LABS: Alanine Aminotransfer (ALT/SGP 34.0 U/L (12-78); Albumin, Blood 4.2 g/dL (3.4-5.0); Albumin/Globulin Ratio 1.0 (0.8-1.8); Anion Gap 15.0 mmol/L (3-11); Aspartate Aminotrans (AST/SGOT 39.0 U/L (12-37); Bilirubin, Total 0.3 mg/dL (0.1-1.0); Blood Urea Nitrogen 35.0 mg/dL (8-24); CO2, Blood 24.0 mmol/L (21-32); Calcium, Blood 8.3 mg/dL (8.5-10.1); Chloride, Blood 96.0 mmol/L (98-108); Creatinine, Blood 2.71 mg/dL (0.60-1.20); Globulin, Blood 4.2 g/dL (2.2-4.0); Glucose, Blood 104.0 mg/dL (70-99); Sodium, Blood 129.0 mmol/L (136-145); Total Protein, Blood 8.4 g/dL (6.4-8.2)
[2024-10-25 05:46] LABS: Potassium, Blood 6.2 mmol/L (3.5-5.5)
[2024-10-25] MEDS ORDERED: Insulin Regular 100 Unit/ML 1ML Dose IV ONE (05:50)
[2024-10-25] MEDS ORDERED: Ondansetron HCl 2 MG / ML 2ML Vial IV PRN (06:15)
[2024-10-25 09:00] VITALS: BP 136/82
[2024-10-25] MEDS ORDERED: Enoxaparin 40 MG/0.4 ML SYR SC SCH (09:00)
[2024-10-25] MEDS ORDERED: Multivitamins 1 Tab PO SCH (10:00)
[2024-10-25 12:11] VITALS: BP 105/64
[2024-10-25 13:02] LABS: Alanine Aminotransfer (ALT/SGP 35.0 U/L (12-78); Albumin, Blood 3.6 g/dL (3.4-5.0); Albumin/Globulin Ratio 1.0 (0.8-1.8); Anion Gap 10.0 mmol/L (3-11); Aspartate Aminotrans (AST/SGOT 51.0 U/L (12-37); Bilirubin, Total 0.4 mg/dL (0.1-1.0); Blood Urea Nitrogen 31.0 mg/dL (8-24); CO2, Blood 31.0 mmol/L (21-32); Calcium, Blood 8.7 mg/dL (8.5-10.1); Chloride, Blood 98.0 mmol/L (98-108); Creatinine, Blood 1.38 mg/dL (0.60-1.20); Globulin, Blood 3.7 g/dL (2.2-4.0); Glucose, Blood 84.0 mg/dL (70-99); Sodium, Blood 135.0 mmol/L (136-145); Total Protein, Blood 7.3 g/dL (6.4-8.2)
[2024-10-25 13:04] LABS: Potassium, Blood 3.5 mmol/L (3.5-5.5)
[2024-10-25] MEDS ORDERED: Ketorolac Tromethamine 15mg Vial IV PRN (14:00)
--- NOTE | 2024-10-25 14:14 | NUR ---
ASSUMPTION OF CARE ASSUMED CARE OF PATIENT AROUND 10:00, HE WAS ALERT AND ORIENTED X 4. PT WAS ABLE TO STAND AND AMBULATE FROM ER BED TO PCU BED. HE CAME WITH LR INFUSION. INFUSION WAS CONTINUED AFTER PATIENT WAS MOVED TO PCU BED. PREVIOUS IV IN LEFT FOREARM FLUSHES AND IS PATENT. PATIENT ASK FOR NICOTINE SUBSTITUTE AND WAS MEDICATED PER EMAR. PATIENT STATED PAIN WAS PRESENT, MEDICATED PER EMAR. PATIENT ALSO REQUESTED FOOD. HE WAS FED PER DIET ORDERS IN CHART. PT RESTING, BED IN LOWEST POSITION, CALL LIGHT WITH IN REACH.
[2024-10-25 16:05] VITALS: BP 125/71
--- NOTE | 2024-10-25 18:08 | NUR ---
END OF SHIFT SUMMARY PATIENT'S STATUS REMAINS UNCHANGED FROM PREVIOUS NOTE. HIS CREATININE IMPROVED WITH 11:00 AM LABS AND CK HAD DECREASED. PATIENT REPORTED MODERATE PAIN IN MUSCLES AND WAS MEDICATED PER EMAR. PATIENT IS RECIEVING HIS 2ND OF 3 BAGS OF LR AND IS RESTING COMFORTABLY IN BED. BED IN LOWEST POSITION, CALL LIGHT IS WITH IN REACH. TELLY IS ATTACHED AND MONITORING.
[2024-10-25 20:45] VITALS: BP 125/80
[2024-10-25 22:56] LABS: Source, Urine Clean Catch
[2024-10-25 23:01] LABS: Bilirubin, Urine Neg (Neg); Glucose Qualitative, Urine Neg (Neg); Ketones, Urine Neg (Neg); Leukocyte Esterase, Urine Neg (Neg); Protein, Urine Neg (Neg); Specific Gravity, Urine 1.010 (1.003-1.022); Urobilinogen, Urine NORM (Normal)
[2024-10-25 23:03] LABS: Color, Urine Pale Yellow (P-Yellow)
[2024-10-25 23:15] LABS: U Amphetamine Screen DETECTED; U Barbituate Screen Not Detected; U Benzodiazapine Screen Not Detected; U Buprenorphine Screen Not Detected; U Cannabinoids Screen DETECTED; U Cocaine Screen Not Detected; U Methadone Screen Not Detected; U Methamphetamine Screen DETECTED; U Opiates Screen Not Detected; U Oxycodone Screen Not Detected; U Phencyclidine Screen Not Detected
[2024-10-25 23:39] VITALS: BP 133/80
[2024-10-26 03:30] VITALS: BP 127/82
[2024-10-26 04:39] LABS: Hematocrit 35.5 % (37.0-53.0); Hemoglobin 11.2 g/dL (13.5-17.5); Mean Corpuscular HGB Conc 31.5 g/dL (31.5-36.5); NRBC ABSOLUTE 0.00 K/mm3 (0.00-0.02); NRBC Auto 0.0 /100 WBC (0.0-0.2); Platelet Count 362 K/mm3 (150-400); RDW Coefficient Variation 14.2 % (11.7-14.2); RDW Standard Deviation 45.4 fL (35.1-46.3)
[2024-10-26 04:59] LABS: Mean Corpuscular Volume 88 fL (80-100)
[2024-10-26 05:10] LABS: Magnesium, Blood 2.2 mg/dL (1.6-2.4)
[2024-10-26 05:15] LABS: Alanine Aminotransfer (ALT/SGP 34.0 U/L (12-78); Albumin, Blood 3.0 g/dL (3.4-5.0); Albumin/Globulin Ratio 1.0 (0.8-1.8); Anion Gap 7.0 mmol/L (3-11); Aspartate Aminotrans (AST/SGOT 49.0 U/L (12-37); Bilirubin, Total 0.2 mg/dL (0.1-1.0); Blood Urea Nitrogen 33.0 mg/dL (8-24); CO2, Blood 28.0 mmol/L (21-32); Calcium, Blood 8.4 mg/dL (8.5-10.1); Chloride, Blood 107.0 mmol/L (98-108); Creatinine, Blood 0.92 mg/dL (0.60-1.20); Globulin, Blood 3.1 g/dL (2.2-4.0); Glucose, Blood 94.0 mg/dL (70-99); Phosphorus, Blood 3.8 mg/dL (2.5-4.9); Potassium, Blood 4.6 mmol/L (3.5-5.5); Sodium, Blood 137.0 mmol/L (136-145); Total Protein, Blood 6.1 g/dL (6.4-8.2)
--- NOTE | 2024-10-26 06:18 | NUR ---
SHIFT SUMMARY: PT A&OX4 CALM AND COOPERATIVE. VSS ON RA. PT C/O 9/10 PAIN IN ABDOMEN AND LOWER EXTREMITIES. MEDICATED PER EMAR. TOLERATING REGULAR DIET. INDEPENDENT IN ROOM. ADEQUATE URINE OUTPUT. PROVIDER CONSULTED FOR INCREASED CREATINE KINASE LEVELS. ORDERED MORE LR FLUIDS AND D/C TORADOL D/T KIDNEY FUNCTION. INSTRUCTED NO NSAIDS FOR THIS PT. BED IS LOW AND LOCKED. CALL LIGHT WITHIN REACH. CONTINUE WITH CURRENT PLAN OF CARE.
[2024-10-26 07:39] VITALS: BP 108/68
[2024-10-26] MEDS ORDERED: NS 1,000 ML IV SCH (07:50)
[2024-10-26 12:00] VITALS: BP 119/68
[2024-10-26] MEDS ORDERED: Acetaminophen325 M1 PO (13:11)
--- NOTE | 2024-10-26 13:48 | NUR ---
DISCHARGE NOTE PATIENT DISCHARGED HOME WITH DISCHARGE ORDERS. DISCUSSED NEW MEDICATIONS AND DISCHARGE INSTRUCTIONS. PATIENT VERBALIZED UNDERSTANDING. NO OTHER ISSUES ENCOUNTERED PRIOR TO DISCHARGE. VITALS STABLE. ALL BELONGINGS SENT WITH PATIENT. [facility] WAS CALLED BY [facility] FOR TRANSPORTATION.
== END 2024-10-26 13:44 | disposition home or self-care (01) ==
LOC: ER 02:46 → ERHOLD 02:47 → PCU 10:05
PROVIDERS: Emergency Medicine; Internal Medicine; ADMIT Student in an Organized Health Care Education/Training Program
DX: M62.82 Rhabdomyolysis (principal); E87.5 Hyperkalemia; E87.1 Hypo-osmolality and hyponatremia; N17.9 Acute kidney failure, unspecified; L56.8 Other specified acute skin changes due to ultraviolet radiation; F17.210 Nicotine dependence, cigarettes, uncomplicated; Z91.040 Latex allergy status; Z91.018 Allergy to other foods
CPT/HCPCS: 36415; 80053; 80320; 81003; 82550; 82947; 83735; 84100; 85025; 85027; 93005; 93010; 96361; 96372; 96374; 96375; 99284-25; A9270; G0378; J1650; J1815; J1885; J2405; J7030; J7120

== ENCOUNTER 2024-12-15 21:27 | Emergency (ER) | payer OTHER ==
[~2024-12-15] VITALS: Ht 182.9 cm; Wt 81.7 kg
[~2024-12-15 21:27] MED LIST changes: +Acetaminophen325 M1 PO
[2024-12-15 21:54] VITALS: BP 127/69
[2024-12-15] MEDS ORDERED: BACTRIM DS TAB1 EAC1 PO (21:59)
[2024-12-15] MEDS ORDERED: Trimethoprim/Sulfamethoxazole DS Tab PO ONE (22:00)
== END 2024-12-15 22:06 | disposition home or self-care (01) ==
LOC: ER 21:27
DX: L03.114 Cellulitis of left upper limb (principal); L02.414 Cutaneous abscess of left upper limb; Z91.040 Latex allergy status; Z91.018 Allergy to other foods; F17.200 Nicotine dependence, unspecified, uncomplicated
CPT/HCPCS: 99283; A9270

== ENCOUNTER 2025-01-30 00:03 | Emergency (ER) | payer OTHER ==
[~2025-01-30] VITALS: Ht 182.9 cm; Wt 81.7 kg
[~2025-01-30 00:03] MED LIST changes: +BACTRIM DS TAB1 EAC1 PO
[2025-01-30] MEDS ORDERED: Ketorolac Tromethamine 15mg Vial IV ONE (01:25)
[2025-01-30] MEDS ORDERED: NS 1,000 ML IV SCH (01:25)
[2025-01-30] MEDS ORDERED: DiphenhydrAMINE HCl 50 MG/ML 1ML Vial IV ONE (01:25)
[2025-01-30 02:25] VITALS: BP 125/87
== END 2025-01-30 02:25 | disposition home or self-care (01) ==
LOC: ER 00:03
DX: G43.909 Migraine, unspecified, not intractable, without status migrainosus (principal); F17.200 Nicotine dependence, unspecified, uncomplicated; Z91.040 Latex allergy status; Z91.048 Other nonmedicinal substance allergy status
CPT/HCPCS: 96374; 96375; 99282-25; A9270; J1200; J1885; J7030